=== PATIENT | female | born 1950 | race Caucasian/White ===

== ENCOUNTER 2017-11-01 10:37 | Inpatient (IN) | payer MEDICARE, MEDICAID ==
[~2017-11-01] VITALS: Ht 165.1 cm; Wt 87.0 kg
[~2017-11-01 10:37] MED LIST: ALB0.5UD NEB; BACL10TA PO; BUDE10.2 INH; COU3T PO; EYE DROPS; FERR134T2 PO; FLUT16SP10; FURO40TA4 PO; GLIP2.5T3 PO; LANTUS SUBCUT; LORA-512 PO; METF500T PO; METO-539 PO; NASAL SPRAY; NITR0.4T48 SL; OXYB5TAB11 PO; POTA8TAB8 PO; [UNRECOGNIZED DRUG - CODE] PO
[2017-11-01] MEDS ORDERED: normal saline 1000ML IV soln IV ONE (11:10)
[2017-11-01] MEDS ORDERED: levoFLOXACIN-Levaquin 750MG/D5 150 ML IV STA (11:47)
[2017-11-01] MEDS ORDERED: furosemide 10 MG/1 ML 10ml inj IV ONE (11:50)
[2017-11-01 12:00] LABS: BASOPHILS % (AUTO) 0.1 % (0-1); EOSINOPHILS % (AUTO) 0 % (0-6); HEMATOCRIT 38.4 % (35.0-45.0); HEMOGLOBIN 12.8 g/dl (12.0-16.0); LYMPHOCYTES # (AUTO) 0.6 X10'3 (1.1-4.8); LYMPHOCYTES % (AUTO) 3.8 % (21-51); MEAN CORPUSCULAR HEMOGLOBIN 31.2 PG (27.0-31.0); MEAN CORPUSCULAR HGB CONC 33.5 % (33.0-36.5); MEAN CORPUSCULAR VOLUME 93.2 FL (78-98); MEAN PLATELET VOLUME 10.6 FL (7.4-10.4); MONOCYTES # (AUTO) 0.7 X10'3 (0-0.9); MONOCYTES % (AUTO) 4.7 % (2-12); NEUTROPHILS # (AUTO) 13.9 X10'3 (1.8-7.7); NEUTROPHILS % (AUTO) 91.4 % (42-75); PLATELET COUNT 96 X10'3 (140-440); RED BLOOD COUNT 4.12 X10'6 (4.20-5.60); RED CELL DISTRIBUTION WIDTH 17.1 % (11.5-14.5); WHITE BLOOD COUNT 15.2 X10'3 (4.5-11.0)
[2017-11-01 12:16] LABS: ALANINE AMINOTRANSFERASE 23 U/L (12-78); ALBUMIN/GLOBULIN RATIO 0.6 (1.1-1.5); ALKALINE PHOSPHATASE 97 IU/L (46-116); ANION GAP 11 (8-16); ASPARTATE AMINO TRANSFERASE 41 U/L (10-37); BILIRUBIN,TOTAL 1.2 MG/DL (0.1-1.0); BLOOD UREA NITROGEN 16 MG/DL (7-18); BUN/CREATININE RATIO 14.4 (6.6-38.0); CALCIUM 8.7 MG/DL (8.5-10.1); CHLORIDE 101 MMOL/L (99-107); CREATININE 1.11 MG/DL (0.40-0.90); GLUCOSE 284 MG/DL (70-104); POTASSIUM 3.7 MMOL/L (3.5-5.1); SODIUM 136 MMOL/L (135-145); TOTAL CARBON DIOXIDE 23.6 MMOL/L (24-32); TOTAL PROTEIN 7.8 G/DL (6.4-8.2); eGFR 49 ML/MIN
[2017-11-01 12:18] LABS: LACTIC SEPSIS 2.5 MMOL/L (0.4-2.0)
[2017-11-01 12:20] LABS: MAGNESIUM 1.4 MG/DL (1.5-2.4)
[2017-11-01 12:28] LABS: PARTIAL THROMBOPLASTIN TIME 53 SECONDS (22-32); PROTHROMBIN TIME 52.6 SECONDS (9.0-12.0)
[2017-11-01] MEDS ORDERED: diltiazem-NS 100mg/100ml 100 ML IV ONE (12:28)
[2017-11-01] MEDS ORDERED: diltiazem-NS 100mg/100ml 100 ML IV PRN (12:29)
[2017-11-01 12:30] LABS: INR 5.4 INR
[2017-11-01] MEDS ORDERED: nitroGLYCERIN 0.4mg/hour patch TD ONE (12:30)
[2017-11-01] MEDS ORDERED: verapamil 2.5 mg/ml inj IV ONE ×2 (12:30→13:45)
[2017-11-01] MEDS: magnesium/D5W IVPB 100 ML IV SCH ×2 (12:52→13:38)
[2017-11-01 13:04] LABS: TOTAL CELLS COUNTED 100
[2017-11-01 13:05] LABS: ANISOCYTOSIS 1+; LARGE PLATELETS FEW; PLATELET ESTIMATE DECREASED
[2017-11-01 13:06] LABS: ELLIPTOCYTES 1+
[2017-11-01 13:11] LABS: CLARITY,URINE CLOUDY (Clear); COLOR,URINE STRAW (Yellow); GLUCOSE, URINE 500 mg/dl (Neg); KETONES,URINE NEGATIVE (Neg); LEUKOCYTE ESTERASE ,URINE SMALL (Neg); NITRITES, URINE POSITIVE (Neg); OCCULT BLOOD,URINE LARGE (Neg); PH,URINE 5.5 (4.8-8.0); PROTEIN,URINE 100 mg/dl (Neg); UROBILINOGEN,URINE 0.2 E.U/dL (0.2-1.0)
[2017-11-01 13:15] LABS: UA COLLECTION TYPE FOLEY CATH
[2017-11-01 13:16] LABS: ABG BASE EXCESS -4.7 mmol/L (-2.0-3.0); ABG OXYGEN SATURATION 95.1 % (95-98); ABG PCO2 (T) 37.8 mmHg (32.0-45.0); ABG PH (T) 7.347 (7.350-7.450); ABG PO2 (T) 84.8 mmHg (83-108); ALLEN'S TEST Positive; FCOHb 0.7 % (0.5-1.5); FMetHb 0.2 % (0.3-1.12); FO2Hb 94.2 % (94-100); MINUTE VOLUME 19 L/min; RESPIRATORY RATE (OBSERVED) 36 b/min; TIDAL VOLUME 553 mL; TOTAL HEMOGLOBIN 13.6 G/dl (12.0-16.0)
[2017-11-01 13:17] LABS: BACTERIA,URINE 4+ /HPF (Neg); HYALINE CASTS 0-3 /LPF (NEGATIVE); SQUAMOUS EPITHELIAL CELL,UR NONE SEEN /LPF (FEW); WBC CLUMPS,URINE MODERATE /HPF (NEGATIVE); WBC,URINE 30-50 /HPF (0-4)
[2017-11-01 13:23] LABS: URINE AMPHETAMINE SCREEN NEGATIVE (Neg); URINE BARBITUATE SCREEN NEGATIVE (Neg); URINE BENZODIAZEPINES SCREEN NEGATIVE (Neg); URINE CANNABINOID SCREEN NEGATIVE (Neg); URINE COCAINE SCREEN NEGATIVE (Neg); URINE METHADONE SCREEN NEGATIVE (Neg); URINE OPIATE SCREEN NEGATIVE (Neg); URINE PHENCYCLIDINE SCREEN NEGATIVE (Neg)
[2017-11-01] MEDS ORDERED: morphine 4 MG/ML inj SYRINge IV ONE (14:25)
[2017-11-01] MEDS ORDERED: ondansetron/PF 4mg/2ml inj IV ONE (14:25)
[2017-11-01 16:20] LABS: MAGNESIUM 1.8 MG/DL (1.5-2.4); PHOSPHORUS 2.8 MG/DL (2.3-4.5); POTASSIUM 3.6 MMOL/L (3.5-5.1)
[2017-11-01] MEDS ORDERED: digoxin 250mcg/ml 2ml ampule IV ONE (16:30)
[2017-11-01] MEDS ORDERED: magnesium/D5W IVPB 50 ML IV PRN (16:30)
[2017-11-01] MEDS ORDERED: magnesium Cl slow-release 64mg tablet PO PRN (16:30)
[2017-11-01] MEDS ORDERED: glucagon, human recombinant 1mg kit SUBCUT PRN (16:30)
[2017-11-01] MEDS ORDERED: dextrose 50%-water 50ml dispensing syringe IV PRN ×2 (16:30)
[2017-11-01] MEDS: CefTRIAXone/D5W-Rocephin 1gm 50 ML IV SCH (16:30)
[2017-11-01] MEDS ORDERED: acetaminophen 325mg tablet PO PRN (16:30)
[2017-11-01] MEDS ORDERED: MESSAGE TO PHARMACY PO ONE (16:30)
[2017-11-01] MEDS ORDERED: dextrose ORAL solution 15 GM/59 ML bottle PO PRN ×2 (16:30)
[2017-11-01] MEDS ORDERED: magnesium 4gm in 100ml NS 100 ML IV PRN (16:30)
[2017-11-01] MEDS ORDERED: mag hydrox/Alum hydrox/simeth 30ml oral suspension PO PRN (16:30)
[2017-11-01] MEDS ORDERED: morphine 4 MG/ML inj SYRINge IV PRN (16:30)
[2017-11-01] MEDS ORDERED: ondansetron/PF 4mg/2ml inj IV PRN (16:30)
[2017-11-01] MEDS ORDERED: nitroGLYCERIN 0.4mg SUBLingual tab SL PRN (16:45)
[2017-11-01 17:57] LABS: HEMOGLOBIN A1C 7.6 % (4.5-6.2)
[2017-11-01 19:28] VITALS: BP 106/72
[2017-11-01 20:00] VITALS: BP 116/65
[2017-11-01] MEDS: albuterol 2.5 MG/3 ML nebule NEB SCH (20:52)
[2017-11-01] MEDS: budesonide 0.5mg/2ml UD nebule IH SCH (20:52)
[2017-11-01 21:00] VITALS: BP 109/67
[2017-11-01] MEDS: metoprolol succinate 25mg (24-HOUR) SR. Tablet PO SCH (21:18)
[2017-11-01] MEDS: oxybutynin 5mg tablet PO SCH (21:18)
[2017-11-01] MEDS: baclofen 10mg tablet PO SCH (21:19)
[2017-11-01] MEDS: insulin glargine (Lantus) pen - multi-dose SQ SCH (21:20)
[2017-11-01] MEDS: insulin Lispro (HumaLOG) vial - multi-dose SQ SCH (21:34)
[2017-11-01 23:00] VITALS: BP 94/60
[2017-11-02] VITALS (8 sets, daily range): BP systolic 79–104; BP diastolic 49–69
[2017-11-02] MEDS: HYDROcodone/acetaminophen 10/325mg tab PO PRN ×2 (05:10→19:51)
[2017-11-02 06:51] LABS: BASOPHILS % (AUTO) 0.2 % (0-1); EOSINOPHILS # (AUTO) 0.2 X10'3 (0-0.9); HEMATOCRIT 32.8 % (35.0-45.0); HEMOGLOBIN 10.8 g/dl (12.0-16.0); LYMPHOCYTES # (AUTO) 0.6 X10'3 (1.1-4.8); LYMPHOCYTES % (AUTO) 8.2 % (21-51); MEAN CORPUSCULAR HEMOGLOBIN 30.9 PG (27.0-31.0); MEAN CORPUSCULAR HGB CONC 33.1 % (33.0-36.5); MEAN CORPUSCULAR VOLUME 93.4 FL (78-98); MEAN PLATELET VOLUME 10.8 FL (7.4-10.4); MONOCYTES # (AUTO) 0.6 X10'3 (0-0.9); MONOCYTES % (AUTO) 8.3 % (2-12); NEUTROPHILS # (AUTO) 6.1 X10'3 (1.8-7.7); NEUTROPHILS % (AUTO) 81.3 % (42-75); PLATELET COUNT 82 X10'3 (140-440); RED BLOOD COUNT 3.51 X10'6 (4.20-5.60); RED CELL DISTRIBUTION WIDTH 16.6 % (11.5-14.5); WHITE BLOOD COUNT 7.5 X10'3 (4.5-11.0)
[2017-11-02 07:02] LABS: ALBUMIN 2.4 G/DL (3.4-5.0); ANION GAP 7 (8-16); BLOOD UREA NITROGEN 24 MG/DL (7-18); BUN/CREATININE RATIO 18.2 (6.6-38.0); CALCIUM 9.3 MG/DL (8.5-10.1); CHLORIDE 102 MMOL/L (99-107); CREATININE 1.32 MG/DL (0.40-0.90); GLUCOSE 169 MG/DL (70-104); MAGNESIUM 1.9 MG/DL (1.5-2.4); POTASSIUM 3.5 MMOL/L (3.5-5.1); SODIUM 137 MMOL/L (135-145); TOTAL CARBON DIOXIDE 28.3 MMOL/L (24-32); eGFR 40 ML/MIN
[2017-11-02 07:05] LABS: PROTHROMBIN TIME 88.6 SECONDS (9.0-12.0)
[2017-11-02 07:23] LABS: INR > 9.0 INR
[2017-11-02] MEDS ORDERED: phytonadione 10 MG/1 ML amp PO ONE (07:40)
[2017-11-02] MEDS ORDERED: DIGOXIN 0.125 MG/2.5 ML PO SCH (08:00)
[2017-11-02] MEDS: albuterol 2.5 MG/3 ML nebule NEB SCH ×4 (08:17→21:03)
[2017-11-02] MEDS: budesonide 0.5mg/2ml UD nebule IH SCH ×2 (08:17→21:03)
[2017-11-02] MEDS: loratadine 10mg tablet PO SCH (08:21)
[2017-11-02] MEDS: oxybutynin 5mg tablet PO SCH ×2 (08:21→19:50)
[2017-11-02] MEDS: potassium chloride 8mEq ER tablet PO SCH (08:22)
[2017-11-02] MEDS: furosemide 40mg tablet PO SCH (08:22)
[2017-11-02] MEDS: metoprolol succinate 25mg (24-HOUR) SR. Tablet PO SCH ×2 (08:22→19:50)
[2017-11-02] MEDS: baclofen 10mg tablet PO SCH ×2 (08:23→19:51)
[2017-11-02] MEDS: CefTRIAXone/D5W-Rocephin 1gm 50 ML IV SCH (08:55)
[2017-11-02] MEDS: atorvastatin 20mg tablet PO SCH (09:01)
[2017-11-02] MEDS: insulin Lispro (HumaLOG) vial - multi-dose SQ SCH ×3 (09:08→19:48)
[2017-11-02 09:12] LABS: CHOL/HDL RATIO 3.3 (0.00-4.99); CHOLESTEROL 137 MG/DL (0-200); HDL CHOLESTEROL 41 MG/DL (35-60); LDL CHOLESTEROL 79 MG/DL (50-100); TRIGLYCERIDES 86 MG/DL (20-135)
[2017-11-02] MEDS: levoFLOXACIN-Levaquin 500mg/D5 100 ML IV SCH (09:35)
[2017-11-02] MEDS ORDERED: calcium gluconate inj. 1 GM in normal saline 100ml IV soln 90 ML IV ONE (09:50)
[2017-11-02] MEDS ORDERED: TRAV5DRO (11:50)
[2017-11-02] MEDS ORDERED: ondansetron/PF 4mg/2ml inj IV PRN (13:25)
[2017-11-02] MEDS ORDERED: normal saline 250ml IV soln 250 ML IV ONE (13:35)
[2017-11-02] MEDS: lactobacillus rhamnosus 10,000 MMU CELLS/CAPSULE PO SCH (19:51)
[2017-11-02] MEDS: insulin glargine (Lantus) pen - multi-dose SQ SCH (22:16)
[2017-11-03 03:00] VITALS: BP 107/60
[2017-11-03 06:17] LABS: BASOPHILS % (AUTO) 0.3 % (0-1); EOSINOPHILS # (AUTO) 0.2 X10'3 (0-0.9); EOSINOPHILS % (AUTO) 4.3 % (0-6); HEMATOCRIT 31.1 % (35.0-45.0); HEMOGLOBIN 10.6 g/dl (12.0-16.0); LYMPHOCYTES # (AUTO) 0.6 X10'3 (1.1-4.8); LYMPHOCYTES % (AUTO) 11.6 % (21-51); MEAN CORPUSCULAR HEMOGLOBIN 31.5 PG (27.0-31.0); MEAN CORPUSCULAR VOLUME 92.8 FL (78-98); MEAN PLATELET VOLUME 11.2 FL (7.4-10.4); MONOCYTES # (AUTO) 0.4 X10'3 (0-0.9); MONOCYTES % (AUTO) 7.9 % (2-12); NEUTROPHILS # (AUTO) 3.7 X10'3 (1.8-7.7); NEUTROPHILS % (AUTO) 75.9 % (42-75); PLATELET COUNT 90 X10'3 (140-440); RED BLOOD COUNT 3.35 X10'6 (4.20-5.60); RED CELL DISTRIBUTION WIDTH 16.2 % (11.5-14.5); WHITE BLOOD COUNT 4.9 X10'3 (4.5-11.0)
[2017-11-03 06:19] LABS: ALBUMIN 2.4 G/DL (3.4-5.0); ANION GAP 8 (8-16); BLOOD UREA NITROGEN 34 MG/DL (7-18); BUN/CREATININE RATIO 26.6 (6.6-38.0); CALCIUM 8.9 MG/DL (8.5-10.1); CHLORIDE 103 MMOL/L (99-107); CREATININE 1.28 MG/DL (0.40-0.90); GLUCOSE 125 MG/DL (70-104); MAGNESIUM 1.8 MG/DL (1.5-2.4); POTASSIUM 3.8 MMOL/L (3.5-5.1); SODIUM 139 MMOL/L (135-145); TOTAL CARBON DIOXIDE 28.5 MMOL/L (24-32); eGFR 42 ML/MIN
[2017-11-03 06:20] LABS: INR 1.3 INR; PROTHROMBIN TIME 13.1 SECONDS (9.0-12.0)
[2017-11-03 06:51] VITALS: BP 104/69
[2017-11-03] MEDS: budesonide 0.5mg/2ml UD nebule IH SCH ×2 (07:27→21:23)
[2017-11-03] MEDS: albuterol 2.5 MG/3 ML nebule NEB SCH ×4 (07:27→21:23)
[2017-11-03] MEDS: baclofen 10mg tablet PO SCH ×2 (07:56→19:33)
[2017-11-03] MEDS: lactobacillus rhamnosus 10,000 MMU CELLS/CAPSULE PO SCH ×2 (07:56→19:34)
[2017-11-03] MEDS: furosemide 40mg tablet PO SCH (07:56)
[2017-11-03] MEDS: atorvastatin 20mg tablet PO SCH (07:56)
[2017-11-03] MEDS: metoprolol succinate 25mg (24-HOUR) SR. Tablet PO SCH ×2 (07:57→19:34)
[2017-11-03] MEDS: oxybutynin 5mg tablet PO SCH ×2 (07:57→19:34)
[2017-11-03] MEDS: loratadine 10mg tablet PO SCH (07:57)
[2017-11-03] MEDS: levoFLOXACIN-Levaquin 500mg/D5 100 ML IV SCH (07:58)
[2017-11-03] MEDS: CefTRIAXone/D5W-Rocephin 1gm 50 ML IV SCH (07:58)
[2017-11-03] MEDS: potassium chloride 8mEq ER tablet PO SCH (07:58)
[2017-11-03] MEDS: apixaban 5mg tablet PO SCH ×2 (08:00→19:34)
[2017-11-03 11:00] VITALS: BP 94/61
[2017-11-03] MEDS: insulin Lispro (HumaLOG) vial - multi-dose SQ SCH ×2 (13:45→19:40)
[2017-11-03 15:00] VITALS: BP 103/58
[2017-11-03 19:00] VITALS: BP 114/64
[2017-11-03] MEDS: HYDROcodone/acetaminophen 10/325mg tab PO PRN (19:34)
[2017-11-03] MEDS: insulin glargine (Lantus) pen - multi-dose SQ SCH (21:32)
[2017-11-03 23:00] VITALS: BP 109/56
[2017-11-04 03:00] VITALS: BP 101/51
[2017-11-04 06:10] LABS: BASOPHILS % (AUTO) 0.2 % (0-1); EOSINOPHILS # (AUTO) 0.2 X10'3 (0-0.9); EOSINOPHILS % (AUTO) 4.3 % (0-6); HEMATOCRIT 29.7 % (35.0-45.0); LYMPHOCYTES # (AUTO) 0.5 X10'3 (1.1-4.8); LYMPHOCYTES % (AUTO) 14.2 % (21-51); MEAN CORPUSCULAR HEMOGLOBIN 31.1 PG (27.0-31.0); MEAN CORPUSCULAR HGB CONC 33.6 % (33.0-36.5); MEAN CORPUSCULAR VOLUME 92.6 FL (78-98); MEAN PLATELET VOLUME 11.4 FL (7.4-10.4); MONOCYTES # (AUTO) 0.3 X10'3 (0-0.9); MONOCYTES % (AUTO) 8.7 % (2-12); NEUTROPHILS # (AUTO) 2.8 X10'3 (1.8-7.7); NEUTROPHILS % (AUTO) 72.6 % (42-75); PLATELET COUNT 92 X10'3 (140-440); RED BLOOD COUNT 3.21 X10'6 (4.20-5.60); RED CELL DISTRIBUTION WIDTH 16.2 % (11.5-14.5); WHITE BLOOD COUNT 3.8 X10'3 (4.5-11.0)
[2017-11-04 06:13] LABS: INR 1.1 INR; PROTHROMBIN TIME 11.8 SECONDS (9.0-12.0)
[2017-11-04 06:26] LABS: ALBUMIN 2.4 G/DL (3.4-5.0); ANION GAP 4 (8-16); BLOOD UREA NITROGEN 32 MG/DL (7-18); BUN/CREATININE RATIO 25.6 (6.6-38.0); CALCIUM 9.2 MG/DL (8.5-10.1); CHLORIDE 104 MMOL/L (99-107); CREATININE 1.25 MG/DL (0.40-0.90); GLUCOSE 177 MG/DL (70-104); MAGNESIUM 1.7 MG/DL (1.5-2.4); POTASSIUM 4.2 MMOL/L (3.5-5.1); SODIUM 140 MMOL/L (135-145); TOTAL CARBON DIOXIDE 32.2 MMOL/L (24-32); eGFR 43 ML/MIN
[2017-11-04 06:39] LABS: LARGE PLATELETS FEW; PLATELET ESTIMATE DECREASED
[2017-11-04 07:00] VITALS: BP 104/70
[2017-11-04] MEDS: albuterol 2.5 MG/3 ML nebule NEB SCH ×4 (07:49→20:00)
[2017-11-04] MEDS: budesonide 0.5mg/2ml UD nebule IH SCH ×2 (07:49→20:00)
[2017-11-04] MEDS: furosemide 40mg tablet PO SCH (07:58)
[2017-11-04] MEDS: loratadine 10mg tablet PO SCH (07:58)
[2017-11-04] MEDS: metoprolol succinate 25mg (24-HOUR) SR. Tablet PO SCH ×2 (07:58→20:34)
[2017-11-04] MEDS: atorvastatin 20mg tablet PO SCH (07:58)
[2017-11-04] MEDS: lactobacillus rhamnosus 10,000 MMU CELLS/CAPSULE PO SCH ×2 (07:58→20:34)
[2017-11-04] MEDS: potassium chloride 8mEq ER tablet PO SCH (07:58)
[2017-11-04] MEDS: baclofen 10mg tablet PO SCH ×2 (07:58→20:34)
[2017-11-04] MEDS: oxybutynin 5mg tablet PO SCH ×2 (07:58→20:34)
[2017-11-04] MEDS: digoxin 125mcg (0.125mg) tablet PO SCH (07:59)
[2017-11-04] MEDS: HYDROcodone/acetaminophen 10/325mg tab PO PRN ×2 (07:59→20:51)
[2017-11-04] MEDS: apixaban 5mg tablet PO SCH ×2 (07:59→20:34)
[2017-11-04] MEDS: CefTRIAXone/D5W-Rocephin 1gm 50 ML IV SCH (08:00)
[2017-11-04] MEDS: insulin Lispro (HumaLOG) vial - multi-dose SQ SCH ×3 (09:43→20:46)
[2017-11-04 11:00] VITALS: BP 102/54
[2017-11-04] MEDS ORDERED: levoFLOXACIN 250mg tablet PO SCH (11:00)
[2017-11-04 15:00] VITALS: BP 111/37
[2017-11-04] MEDS ORDERED: Permethrin Cream 60gm TP ONE ×2 (17:30→20:00)
[2017-11-04] MEDS ORDERED: Permethrin 1% 59ml topical rinse TP ONE ×2 (17:30→20:00)
[2017-11-04 19:00] VITALS: BP 132/69
[2017-11-04] MEDS: NYSTATIN CREAM - 30GM TUBE TP SCH (21:08)
[2017-11-04] MEDS: insulin glargine (Lantus) pen - multi-dose SQ SCH (21:10)
[2017-11-04 23:00] VITALS: BP 145/73
[2017-11-05 03:00] VITALS: BP 144/84
[2017-11-05 05:30] VITALS: BP 112/80
[2017-11-05 05:56] LABS: BASOPHILS % (AUTO) 0.4 % (0-1); EOSINOPHILS # (AUTO) 0.3 X10'3 (0-0.9); EOSINOPHILS % (AUTO) 4.2 % (0-6); HEMATOCRIT 33.8 % (35.0-45.0); HEMOGLOBIN 11.3 g/dl (12.0-16.0); LYMPHOCYTES # (AUTO) 0.7 X10'3 (1.1-4.8); LYMPHOCYTES % (AUTO) 11.7 % (21-51); MEAN CORPUSCULAR HEMOGLOBIN 31.3 PG (27.0-31.0); MEAN CORPUSCULAR HGB CONC 33.5 % (33.0-36.5); MEAN CORPUSCULAR VOLUME 93.4 FL (78-98); MONOCYTES # (AUTO) 0.5 X10'3 (0-0.9); MONOCYTES % (AUTO) 8.2 % (2-12); NEUTROPHILS # (AUTO) 4.5 X10'3 (1.8-7.7); NEUTROPHILS % (AUTO) 75.5 % (42-75); PLATELET COUNT 96 X10'3 (140-440); RED BLOOD COUNT 3.62 X10'6 (4.20-5.60); RED CELL DISTRIBUTION WIDTH 16.3 % (11.5-14.5); WHITE BLOOD COUNT 5.9 X10'3 (4.5-11.0)
[2017-11-05 06:06] LABS: INR 1.2 INR; PROTHROMBIN TIME 11.9 SECONDS (9.0-12.0)
[2017-11-05 06:33] LABS: ALBUMIN 2.7 G/DL (3.4-5.0); ANION GAP 6 (8-16); BLOOD UREA NITROGEN 27 MG/DL (7-18); CALCIUM 9.3 MG/DL (8.5-10.1); CHLORIDE 103 MMOL/L (99-107); CREATININE 1.04 MG/DL (0.40-0.90); GLUCOSE 134 MG/DL (70-104); MAGNESIUM 1.7 MG/DL (1.5-2.4); POTASSIUM 3.8 MMOL/L (3.5-5.1); SODIUM 141 MMOL/L (135-145); TOTAL CARBON DIOXIDE 32.4 MMOL/L (24-32); eGFR 53 ML/MIN
[2017-11-05] MEDS: albuterol 2.5 MG/3 ML nebule NEB SCH ×4 (07:00→20:46)
[2017-11-05] MEDS: budesonide 0.5mg/2ml UD nebule IH SCH ×2 (08:00→20:00)
[2017-11-05] MEDS: NYSTATIN CREAM - 30GM TUBE TP SCH ×2 (08:00→19:23)
[2017-11-05] MEDS: potassium chloride 8mEq ER tablet PO SCH (08:00)
[2017-11-05] MEDS: CefTRIAXone/D5W-Rocephin 1gm 50 ML IV SCH (09:34)
[2017-11-05] MEDS: digoxin 125mcg (0.125mg) tablet PO SCH (09:36)
[2017-11-05] MEDS: atorvastatin 20mg tablet PO SCH (09:37)
[2017-11-05] MEDS: lactobacillus rhamnosus 10,000 MMU CELLS/CAPSULE PO SCH ×2 (09:37→19:22)
[2017-11-05] MEDS: apixaban 5mg tablet PO SCH ×2 (09:37→19:22)
[2017-11-05] MEDS: loratadine 10mg tablet PO SCH (09:37)
[2017-11-05] MEDS: baclofen 10mg tablet PO SCH ×2 (09:37→19:23)
[2017-11-05] MEDS: oxybutynin 5mg tablet PO SCH ×2 (09:37→19:22)
[2017-11-05] MEDS: metoprolol succinate 25mg (24-HOUR) SR. Tablet PO SCH ×2 (09:38→19:23)
[2017-11-05] MEDS: furosemide 40mg tablet PO SCH (09:38)
[2017-11-05 11:00] VITALS: BP 116/82
[2017-11-05 15:00] VITALS: BP 117/67
[2017-11-05] MEDS: insulin Lispro (HumaLOG) vial - multi-dose SQ SCH ×2 (15:35→19:33)
[2017-11-05 19:00] VITALS: BP 133/77
[2017-11-05] MEDS: HYDROcodone/acetaminophen 10/325mg tab PO PRN (19:37)
[2017-11-05] MEDS: magnesium hydroxide 30ml (MOM) UD suspension PO PRN (19:42)
[2017-11-05] MEDS: insulin glargine (Lantus) pen - multi-dose SQ SCH (21:13)
[2017-11-05 23:00] VITALS: BP 136/76
[2017-11-06 03:00] VITALS: BP 101/68
[2017-11-06 06:46] VITALS: BP 165/73
[2017-11-06 06:55] LABS: BASOPHILS % (AUTO) 0.5 % (0-1); EOSINOPHILS # (AUTO) 0.3 X10'3 (0-0.9); EOSINOPHILS % (AUTO) 4.2 % (0-6); HEMATOCRIT 36.1 % (35.0-45.0); HEMOGLOBIN 12.1 g/dl (12.0-16.0); LYMPHOCYTES # (AUTO) 0.9 X10'3 (1.1-4.8); LYMPHOCYTES % (AUTO) 11.7 % (21-51); MEAN CORPUSCULAR HEMOGLOBIN 31.2 PG (27.0-31.0); MEAN CORPUSCULAR HGB CONC 33.5 % (33.0-36.5); MEAN CORPUSCULAR VOLUME 93.1 FL (78-98); MONOCYTES # (AUTO) 0.4 X10'3 (0-0.9); MONOCYTES % (AUTO) 5.4 % (2-12); NEUTROPHILS # (AUTO) 6.1 X10'3 (1.8-7.7); NEUTROPHILS % (AUTO) 78.2 % (42-75); PLATELET COUNT 120 X10'3 (140-440); RED BLOOD COUNT 3.88 X10'6 (4.20-5.60); RED CELL DISTRIBUTION WIDTH 16.3 % (11.5-14.5); WHITE BLOOD COUNT 7.8 X10'3 (4.5-11.0)
[2017-11-06 07:08] LABS: INR 1.1 INR; PROTHROMBIN TIME 11.8 SECONDS (9.0-12.0)
[2017-11-06 07:10] LABS: ALBUMIN 2.8 G/DL (3.4-5.0); ANION GAP 5 (8-16); BLOOD UREA NITROGEN 26 MG/DL (7-18); BUN/CREATININE RATIO 25.2 (6.6-38.0); CALCIUM 9.5 MG/DL (8.5-10.1); CHLORIDE 102 MMOL/L (99-107); CREATININE 1.03 MG/DL (0.40-0.90); GLUCOSE 82 MG/DL (70-104); MAGNESIUM 1.9 MG/DL (1.5-2.4); POTASSIUM 3.8 MMOL/L (3.5-5.1); SODIUM 140 MMOL/L (135-145); TOTAL CARBON DIOXIDE 33.4 MMOL/L (24-32); eGFR 53 ML/MIN
[2017-11-06] MEDS: budesonide 0.5mg/2ml UD nebule IH SCH ×2 (08:00→20:00)
[2017-11-06] MEDS: NYSTATIN CREAM - 30GM TUBE TP SCH ×2 (08:00→21:09)
[2017-11-06] MEDS: albuterol 2.5 MG/3 ML nebule NEB SCH ×4 (08:06→19:32)
[2017-11-06] MEDS: lactobacillus rhamnosus 10,000 MMU CELLS/CAPSULE PO SCH ×2 (08:56→21:07)
[2017-11-06] MEDS: loratadine 10mg tablet PO SCH (08:57)
[2017-11-06] MEDS: furosemide 40mg tablet PO SCH (08:58)
[2017-11-06] MEDS: oxybutynin 5mg tablet PO SCH ×2 (08:58→21:07)
[2017-11-06] MEDS: digoxin 125mcg (0.125mg) tablet PO SCH (08:58)
[2017-11-06] MEDS: baclofen 10mg tablet PO SCH ×2 (08:58→21:07)
[2017-11-06] MEDS: CefTRIAXone/D5W-Rocephin 1gm 50 ML IV SCH (08:58)
[2017-11-06] MEDS: atorvastatin 20mg tablet PO SCH (08:58)
[2017-11-06] MEDS: metoprolol succinate 25mg (24-HOUR) SR. Tablet PO SCH ×2 (08:58→21:07)
[2017-11-06] MEDS: apixaban 5mg tablet PO SCH ×2 (08:58→21:07)
[2017-11-06] MEDS: potassium chloride 8mEq ER tablet PO SCH (08:58)
[2017-11-06] MEDS: insulin Lispro (HumaLOG) vial - multi-dose SQ SCH ×3 (09:03→19:30)
[2017-11-06] MEDS: HYDROcodone/acetaminophen 10/325mg tab PO PRN (11:41)
[2017-11-06 12:04] VITALS: BP 131/69
[2017-11-06 16:13] VITALS: BP 120/66
[2017-11-06 18:00] VITALS: BP 112/64
[2017-11-06] MEDS: insulin glargine (Lantus) pen - multi-dose SQ SCH (21:00)
[2017-11-06 23:00] VITALS: BP 118/75
[2017-11-07 03:00] VITALS: BP 149/75
[2017-11-07 06:00] VITALS: BP 138/78
[2017-11-07] MEDS: albuterol 2.5 MG/3 ML nebule NEB SCH ×4 (06:48→20:14)
[2017-11-07] MEDS: budesonide 0.5mg/2ml UD nebule IH SCH ×2 (06:49→20:14)
[2017-11-07] MEDS: atorvastatin 20mg tablet PO SCH (08:00)
[2017-11-07] MEDS: NYSTATIN CREAM - 30GM TUBE TP SCH ×2 (08:00→20:27)
[2017-11-07] MEDS: digoxin 125mcg (0.125mg) tablet PO SCH (08:00)
[2017-11-07] MEDS: lactobacillus rhamnosus 10,000 MMU CELLS/CAPSULE PO SCH ×2 (09:19→20:00)
[2017-11-07] MEDS: loratadine 10mg tablet PO SCH (09:19)
[2017-11-07] MEDS: metoprolol succinate 25mg (24-HOUR) SR. Tablet PO SCH ×2 (09:20→20:01)
[2017-11-07] MEDS: potassium chloride 8mEq ER tablet PO SCH (09:20)
[2017-11-07] MEDS: baclofen 10mg tablet PO SCH ×2 (09:20→20:01)
[2017-11-07] MEDS: furosemide 40mg tablet PO SCH (09:20)
[2017-11-07] MEDS: CefTRIAXone/D5W-Rocephin 1gm 50 ML IV SCH (09:20)
[2017-11-07] MEDS: oxybutynin 5mg tablet PO SCH ×2 (09:20→20:01)
[2017-11-07] MEDS: apixaban 5mg tablet PO SCH ×2 (09:20→20:01)
[2017-11-07] MEDS: insulin Lispro (HumaLOG) vial - multi-dose SQ SCH ×3 (09:22→19:41)
[2017-11-07 11:00] VITALS: BP 141/68
[2017-11-07 15:00] VITALS: BP 105/52
[2017-11-07 18:00] VITALS: BP 145/97
[2017-11-07] MEDS: insulin glargine (Lantus) pen - multi-dose SQ SCH (21:00)
[2017-11-07 22:00] VITALS: BP 117/73
[2017-11-07] MEDS: HYDROcodone/acetaminophen 10/325mg tab PO PRN (22:34)
[2017-11-08 02:00] VITALS: BP 123/101
[2017-11-08 04:29] LABS: BASOPHILS % (AUTO) 0.6 % (0-1); EOSINOPHILS # (AUTO) 0.3 X10'3 (0-0.9); HEMATOCRIT 32.9 % (35.0-45.0); HEMOGLOBIN 11.2 g/dl (12.0-16.0); LYMPHOCYTES # (AUTO) 0.7 X10'3 (1.1-4.8); LYMPHOCYTES % (AUTO) 13.9 % (21-51); MEAN CORPUSCULAR HEMOGLOBIN 31.3 PG (27.0-31.0); MEAN CORPUSCULAR VOLUME 92.2 FL (78-98); MEAN PLATELET VOLUME 10.4 FL (7.4-10.4); MONOCYTES # (AUTO) 0.5 X10'3 (0-0.9); MONOCYTES % (AUTO) 9.7 % (2-12); NEUTROPHILS # (AUTO) 3.7 X10'3 (1.8-7.7); NEUTROPHILS % (AUTO) 70.8 % (42-75); PLATELET COUNT 119 X10'3 (140-440); RED BLOOD COUNT 3.57 X10'6 (4.20-5.60); RED CELL DISTRIBUTION WIDTH 16.2 % (11.5-14.5); WHITE BLOOD COUNT 5.3 X10'3 (4.5-11.0)
[2017-11-08 04:44] LABS: ALBUMIN 2.6 G/DL (3.4-5.0); ANION GAP 7 (8-16); BLOOD UREA NITROGEN 24 MG/DL (7-18); BUN/CREATININE RATIO 23.1 (6.6-38.0); CHLORIDE 101 MMOL/L (99-107); CREATININE 1.04 MG/DL (0.40-0.90); GLUCOSE 114 MG/DL (70-104); POTASSIUM 3.9 MMOL/L (3.5-5.1); SODIUM 138 MMOL/L (135-145); TOTAL CARBON DIOXIDE 29.9 MMOL/L (24-32); eGFR 53 ML/MIN
[2017-11-08 07:27] VITALS: BP 114/59
[2017-11-08] MEDS: CefTRIAXone/D5W-Rocephin 1gm 50 ML IV SCH (08:00)
[2017-11-08] MEDS: lactobacillus rhamnosus 10,000 MMU CELLS/CAPSULE PO SCH ×2 (08:00→19:54)
[2017-11-08] MEDS: NYSTATIN CREAM - 30GM TUBE TP SCH ×2 (08:00→19:54)
[2017-11-08] MEDS: furosemide 40mg tablet PO SCH (08:00)
[2017-11-08] MEDS: atorvastatin 20mg tablet PO SCH (08:00)
[2017-11-08] MEDS: apixaban 5mg tablet PO SCH ×2 (08:00→19:54)
[2017-11-08] MEDS: baclofen 10mg tablet PO SCH ×2 (08:00→19:54)
[2017-11-08] MEDS: digoxin 125mcg (0.125mg) tablet PO SCH (08:00)
[2017-11-08] MEDS: potassium chloride 8mEq ER tablet PO SCH (08:00)
[2017-11-08] MEDS: metoprolol succinate 25mg (24-HOUR) SR. Tablet PO SCH ×2 (08:00→19:53)
[2017-11-08] MEDS: oxybutynin 5mg tablet PO SCH ×2 (08:00→19:54)
[2017-11-08] MEDS: loratadine 10mg tablet PO SCH (08:00)
[2017-11-08] MEDS: albuterol 2.5 MG/3 ML nebule NEB SCH ×4 (08:36→19:00)
[2017-11-08] MEDS: budesonide 0.5mg/2ml UD nebule IH SCH ×2 (08:36→20:00)
[2017-11-08] MEDS: insulin Lispro (HumaLOG) vial - multi-dose SQ SCH ×3 (09:23→19:57)
[2017-11-08] MEDS: HYDROcodone/acetaminophen 10/325mg tab PO PRN (12:13)
[2017-11-08 12:31] VITALS: BP 106/65
[2017-11-08] MEDS: magnesium hydroxide 30ml (MOM) UD suspension PO PRN (17:22)
[2017-11-08 18:50] VITALS: BP 91/66
[2017-11-08] MEDS: insulin glargine (Lantus) pen - multi-dose SQ SCH (21:59)
[2017-11-08 23:00] VITALS: BP 115/59
[2017-11-09] VITALS (7 sets, daily range): BP systolic 97–119; BP diastolic 50–91
[2017-11-09] MEDS: budesonide 0.5mg/2ml UD nebule IH SCH ×2 (08:08→20:06)
[2017-11-09] MEDS: albuterol 2.5 MG/3 ML nebule NEB SCH ×4 (08:08→20:06)
[2017-11-09] MEDS: lactobacillus rhamnosus 10,000 MMU CELLS/CAPSULE PO SCH ×2 (08:59→21:47)
[2017-11-09] MEDS: loratadine 10mg tablet PO SCH (08:59)
[2017-11-09] MEDS: metoprolol succinate 25mg (24-HOUR) SR. Tablet PO SCH ×2 (08:59→22:04)
[2017-11-09] MEDS: oxybutynin 5mg tablet PO SCH ×2 (09:00→21:48)
[2017-11-09] MEDS: digoxin 125mcg (0.125mg) tablet PO SCH (09:00)
[2017-11-09] MEDS: potassium chloride 8mEq ER tablet PO SCH (09:01)
[2017-11-09] MEDS: apixaban 5mg tablet PO SCH ×2 (09:01→21:48)
[2017-11-09] MEDS: baclofen 10mg tablet PO SCH ×2 (09:01→21:49)
[2017-11-09] MEDS: furosemide 40mg tablet PO SCH (09:01)
[2017-11-09] MEDS: atorvastatin 20mg tablet PO SCH (09:01)
[2017-11-09] MEDS: CefTRIAXone/D5W-Rocephin 1gm 50 ML IV SCH (09:02)
[2017-11-09] MEDS: insulin Lispro (HumaLOG) vial - multi-dose SQ SCH ×4 (09:06→22:08)
[2017-11-09] MEDS: NYSTATIN CREAM - 30GM TUBE TP SCH ×2 (09:17→20:00)
[2017-11-09] MEDS: HYDROcodone/acetaminophen 5mg/325mg tablet PO PRN ×2 (17:34→21:48)
[2017-11-09] MEDS: insulin glargine (Lantus) pen - multi-dose SQ SCH (22:11)
[2017-11-10 03:00] VITALS: BP 109/61
[2017-11-10] MEDS: HYDROcodone/acetaminophen 5mg/325mg tablet PO PRN ×2 (04:16→08:28)
[2017-11-10] MEDS: albuterol 2.5 MG/3 ML nebule NEB SCH ×4 (06:57→20:43)
[2017-11-10] MEDS: budesonide 0.5mg/2ml UD nebule IH SCH ×2 (06:57→20:43)
[2017-11-10 07:00] VITALS: BP 102/57
[2017-11-10] MEDS: apixaban 5mg tablet PO SCH ×2 (08:26→19:53)
[2017-11-10] MEDS: CefTRIAXone/D5W-Rocephin 1gm 50 ML IV SCH (08:26)
[2017-11-10] MEDS: lactobacillus rhamnosus 10,000 MMU CELLS/CAPSULE PO SCH ×2 (08:26→19:53)
[2017-11-10] MEDS: potassium chloride 8mEq ER tablet PO SCH (08:26)
[2017-11-10] MEDS: oxybutynin 5mg tablet PO SCH ×2 (08:26→19:53)
[2017-11-10] MEDS: loratadine 10mg tablet PO SCH (08:26)
[2017-11-10] MEDS: metoprolol succinate 25mg (24-HOUR) SR. Tablet PO SCH ×2 (08:27→19:53)
[2017-11-10] MEDS: baclofen 10mg tablet PO SCH ×2 (08:27→19:53)
[2017-11-10] MEDS: digoxin 125mcg (0.125mg) tablet PO SCH (08:27)
[2017-11-10] MEDS: atorvastatin 20mg tablet PO SCH (08:27)
[2017-11-10] MEDS: furosemide 40mg tablet PO SCH (08:27)
[2017-11-10] MEDS: insulin Lispro (HumaLOG) vial - multi-dose SQ SCH ×3 (08:40→19:40)
[2017-11-10 11:00] VITALS: BP 93/48
[2017-11-10] MEDS: NYSTATIN CREAM - 30GM TUBE TP SCH ×2 (14:12→19:54)
[2017-11-10 15:00] VITALS: BP 102/59
[2017-11-10 19:00] VITALS: BP 111/62
[2017-11-10] MEDS: HYDROcodone/acetaminophen 10/325mg tab PO PRN (21:58)
[2017-11-10] MEDS: insulin glargine (Lantus) pen - multi-dose SQ SCH (22:00)
[2017-11-10 23:00] VITALS: BP 123/64
[2017-11-11] MEDS: albuterol 2.5 MG/3 ML nebule NEB SCH ×2 (07:11→11:52)
[2017-11-11] MEDS: budesonide 0.5mg/2ml UD nebule IH SCH (07:11)
[2017-11-11] MEDS: metoprolol succinate 25mg (24-HOUR) SR. Tablet PO SCH (08:00)
[2017-11-11] MEDS: lactobacillus rhamnosus 10,000 MMU CELLS/CAPSULE PO SCH (08:25)
[2017-11-11] MEDS: baclofen 10mg tablet PO SCH (08:26)
[2017-11-11] MEDS: oxybutynin 5mg tablet PO SCH (08:27)
[2017-11-11] MEDS: atorvastatin 20mg tablet PO SCH (08:27)
[2017-11-11] MEDS: loratadine 10mg tablet PO SCH (08:27)
[2017-11-11] MEDS: apixaban 5mg tablet PO SCH (08:27)
[2017-11-11] MEDS: furosemide 40mg tablet PO SCH (08:28)
[2017-11-11] MEDS: potassium chloride 8mEq ER tablet PO SCH (08:29)
[2017-11-11] MEDS: digoxin 125mcg (0.125mg) tablet PO SCH (08:29)
[2017-11-11 08:31] VITALS: BP 97/44
[2017-11-11] MEDS: CefTRIAXone/D5W-Rocephin 1gm 50 ML IV SCH (08:31)
[2017-11-11] MEDS: NYSTATIN CREAM - 30GM TUBE TP SCH (08:43)
[2017-11-11] MEDS: insulin Lispro (HumaLOG) vial - multi-dose SQ SCH ×2 (08:47→13:10)
[2017-11-11 11:00] VITALS: BP 121/47
== END 2017-11-11 14:20 | DRG 871 ==
LOC: ER 10:38 → ED HOLD 16:30 → PCU 3S 17:52
PROVIDERS: ADMIT Hospitalist; ATTEND Family Medicine
PROC: 5A09357 Assistance with Respiratory Ventilation, Less than 24 Consecutive Hours, Continuous Positive Airway Pressure (ICD-10-PCS; principal; 2017-11-01)
DX: A40.0 Sepsis due to streptococcus, group A (principal); I50.33 Acute on chronic diastolic (congestive) heart failure; G93.40 Encephalopathy, unspecified; I21.A1 Myocardial infarction type 2; E43 Unspecified severe protein-calorie malnutrition; N39.0 Urinary tract infection, site not specified; I13.0 Hypertensive heart and chronic kidney disease with heart failure and stage 1 through stage 4 chronic kidney disease, or unspecified chronic kidney disease; L03.113 Cellulitis of right upper limb; R65.20 Severe sepsis without septic shock; B85.0 Pediculosis due to Pediculus humanus capitis; B85.1 Pediculosis due to Pediculus humanus corporis; B88.8 Other specified infestations; D64.9 Anemia, unspecified; E11.65 Type 2 diabetes mellitus with hyperglycemia; E83.42 Hypomagnesemia; E86.0 Dehydration; G89.29 Other chronic pain; N18.9 Chronic kidney disease, unspecified; I48.91 Unspecified atrial fibrillation; B96.1 Klebsiella pneumoniae [K. pneumoniae] as the cause of diseases classified elsewhere; E11.22 Type 2 diabetes mellitus with diabetic chronic kidney disease; J44.9 Chronic obstructive pulmonary disease, unspecified; W57.XXXA Bitten or stung by nonvenomous insect and other nonvenomous arthropods, initial encounter; Z90.710 Acquired absence of both cervix and uterus; Z95.3 Presence of xenogenic heart valve; Z88.0 Allergy status to penicillin; Z79.01 Long term (current) use of anticoagulants; Z79.84 Long term (current) use of oral hypoglycemic drugs; Z85.42 Personal history of malignant neoplasm of other parts of uterus; Z87.891 Personal history of nicotine dependence; Z68.31 Body mass index [BMI] 31.0-31.9, adult
CPT/HCPCS: 36415; 36600; 70450; 70544; 70551; 71045; 80048; 80053; 80061; 80162; 80305; 81001; 82140; 82803; 82948; 83036; 83605; 83735; 83880; 84100; 84132; 84145; 84443; 84484; 85018; 85025; 85610; 85730; 87040; 87070; 87077; 87088; 87186; 87210; 93005; 93306; 93880; 94640; 94660; 94760; 96361; 96365; 96367; 96375; 97110; 97116; 97161; 97530; 99285; A6212; A6213; A6250; C1758; J0610; J0696; J1160; J1815; J1940; J1956; J2270; J2405; J3430; J3490; J7030; J7626

== ENCOUNTER 2018-01-09 20:34 | Emergency (ER) | payer MEDICARE, MEDICAID ==
[~2018-01-09] VITALS: Ht 162.6 cm; Wt 81.4 kg
[~2018-01-09 20:34] MED LIST changes: -EYE DROPS; -NASAL SPRAY; +TRAV5DRO
[2018-01-09 21:34] LABS: BASOPHILS % (AUTO) 0.4 % (0-1); EOSINOPHILS # (AUTO) 0.1 X10'3 (0-0.9); HEMATOCRIT 29.5 % (35.0-45.0); LYMPHOCYTES # (AUTO) 0.5 X10'3 (1.1-4.8); LYMPHOCYTES % (AUTO) 8.4 % (21-51); MEAN CORPUSCULAR HEMOGLOBIN 32.7 PG (27.0-31.0); MEAN CORPUSCULAR VOLUME 96.1 FL (78-98); MEAN PLATELET VOLUME 9.8 FL (7.4-10.4); MONOCYTES # (AUTO) 0.3 X10'3 (0-0.9); NEUTROPHILS # (AUTO) 4.5 X10'3 (1.8-7.7); NEUTROPHILS % (AUTO) 83.2 % (42-75); PLATELET COUNT 93 X10'3 (140-440); RED BLOOD COUNT 3.07 X10'6 (4.20-5.60); RED CELL DISTRIBUTION WIDTH 15.4 % (11.5-14.5); WHITE BLOOD COUNT 5.4 X10'3 (4.5-11.0)
[2018-01-09 21:44] LABS: INR 1.1 INR; PROTHROMBIN TIME 11.8 SECONDS (9.0-12.0)
[2018-01-09 21:48] LABS: ALANINE AMINOTRANSFERASE 18 U/L (12-78); ALBUMIN 3.1 G/DL (3.4-5.0); ALBUMIN/GLOBULIN RATIO 0.8 (1.1-1.5); ALKALINE PHOSPHATASE 83 IU/L (46-116); ANION GAP 6 (8-16); ASPARTATE AMINO TRANSFERASE 13 U/L (10-37); BILIRUBIN,TOTAL 0.4 MG/DL (0.1-1.0); BLOOD UREA NITROGEN 23 MG/DL (7-18); BUN/CREATININE RATIO 19.7 (6.6-38.0); CALCIUM 9.6 MG/DL (8.5-10.1); CHLORIDE 101 MMOL/L (99-107); CREATININE 1.17 MG/DL (0.40-0.90); GLUCOSE 229 MG/DL (70-104); POTASSIUM 3.9 MMOL/L (3.5-5.1); SODIUM 138 MMOL/L (135-145); TOTAL CARBON DIOXIDE 30.8 MMOL/L (24-32); eGFR 46 ML/MIN
[2018-01-10 02:20] VITALS: BP 121/57
== END 2018-01-10 02:21 | disposition home or self-care (01) ==
LOC: ER 20:35
DX: K92.2 Gastrointestinal hemorrhage, unspecified (principal); M54.9 Dorsalgia, unspecified; E11.9 Type 2 diabetes mellitus without complications; J44.9 Chronic obstructive pulmonary disease, unspecified; Z88.0 Allergy status to penicillin; Z90.721 Acquired absence of ovaries, unilateral; Z90.710 Acquired absence of both cervix and uterus
CPT/HCPCS: 36415; 80053; 82948; 85025; 85610; 86885; 86900; 86901; 99284

== ENCOUNTER 2018-02-10 12:38 | Emergency (ER) | payer MEDICARE, MEDICAID ==
[~2018-02-10] VITALS: Ht 165.1 cm; Wt 79.1 kg
[2018-02-10 13:17] LABS: INR 1.3 INR; PROTHROMBIN TIME 13.4 SECONDS (9.0-12.0)
[2018-02-10 13:24] LABS: ALANINE AMINOTRANSFERASE 12 U/L (12-78); ALBUMIN 3.2 G/DL (3.4-5.0); ALBUMIN/GLOBULIN RATIO 0.8 (1.1-1.5); ALKALINE PHOSPHATASE 106 IU/L (46-116); ANION GAP 11 (8-16); ASPARTATE AMINO TRANSFERASE 18 U/L (10-37); BILIRUBIN,TOTAL 0.4 MG/DL (0.1-1.0); BLOOD UREA NITROGEN 25 MG/DL (7-18); BUN/CREATININE RATIO 20.3 (6.6-38.0); CALCIUM 9.9 MG/DL (8.5-10.1); CHLORIDE 104 MMOL/L (99-107); CREATININE 1.23 MG/DL (0.40-0.90); GLUCOSE 165 MG/DL (70-104); HEMATOCRIT 30.3 % (35.0-45.0); HEMOGLOBIN 10.6 g/dl (12.0-16.0); MEAN CORPUSCULAR HEMOGLOBIN 33.9 PG (27.0-31.0); MEAN CORPUSCULAR HGB CONC 34.8 % (33.0-36.5); MEAN CORPUSCULAR VOLUME 97.4 FL (78-98); POTASSIUM 3.7 MMOL/L (3.5-5.1); RED BLOOD COUNT 3.11 X10'6 (4.20-5.60); SODIUM 144 MMOL/L (135-145); TOTAL PROTEIN 7.4 G/DL (6.4-8.2); WHITE BLOOD COUNT 5.3 X10'3 (4.5-11.0); eGFR 43 ML/MIN
[2018-02-10 13:25] LABS: BASOPHILS % (AUTO) 0.5 % (0-1); EOSINOPHILS # (AUTO) 0.1 X10'3 (0-0.9); EOSINOPHILS % (AUTO) 1.7 % (0-6); LYMPHOCYTES # (AUTO) 0.6 X10'3 (1.1-4.8); LYMPHOCYTES % (AUTO) 10.6 % (21-51); MEAN PLATELET VOLUME 10.3 FL (7.4-10.4); MONOCYTES # (AUTO) 0.3 X10'3 (0-0.9); NEUTROPHILS # (AUTO) 4.3 X10'3 (1.8-7.7); NEUTROPHILS % (AUTO) 82.2 % (42-75); PLATELET COUNT 104 X10'3 (140-440); RED CELL DISTRIBUTION WIDTH 14.2 % (11.5-14.5)
[2018-02-10] MEDS ORDERED: PROCHC RC (13:40)
[2018-02-10] MEDS ORDERED: morphine 4 MG/ML inj SYRINge IV ONE (13:55)
[2018-02-10 15:00] VITALS: BP 116/64
== END 2018-02-10 16:18 | disposition home or self-care (01) ==
LOC: ER 12:38
DX: K64.4 Residual hemorrhoidal skin tags (principal); D64.9 Anemia, unspecified; I10 Essential (primary) hypertension; J44.9 Chronic obstructive pulmonary disease, unspecified; E11.9 Type 2 diabetes mellitus without complications; Z90.710 Acquired absence of both cervix and uterus; Z98.890 Other specified postprocedural states; Z79.899 Other long term (current) drug therapy; Z79.01 Long term (current) use of anticoagulants; Z88.0 Allergy status to penicillin; Z79.4 Long term (current) use of insulin
CPT/HCPCS: 36415; 80053; 85025; 85610; 86885; 86900; 86901; 96374; 99284; J2270

== ENCOUNTER 2018-07-07 11:23 | Inpatient (IN) | payer MEDICARE, MEDICAID | END 2018-07-10 17:42 | disposition E | LOC: CICU 2S 07-09 05:31 → ER 11:23 → ED HOLD 13:49 → PCU 3S 19:30 | PROC: 5A1935Z Respiratory Ventilation, Less than 24 Consecutive Hours (ICD-10-PCS; principal; ~2018-07-07) | DX: K92.2 Gastrointestinal hemorrhage, unspecified (principal); I46.9 Cardiac arrest, cause unspecified; A41.9 Sepsis, unspecified organism; J69.0 Pneumonitis due to inhalation of food and vomit; I50.20 Unspecified systolic (congestive) heart failure; K55.9 Vascular disorder of intestine, unspecified; I47.2 Ventricular tachycardia; I48.91 Unspecified atrial fibrillation; Z79.01 Long term (current) use of anticoagulants; D64.9 Anemia, unspecified ==